=== PATIENT | male | born 1965 | race Caucasian/White ===

== ENCOUNTER 2020-03-03 13:59 | Emergency (ER) | payer OTHER ==
[~2020-03-03] VITALS: Ht 180.3 cm; Wt 83.5 kg
[2020-03-03 14:05] VITALS: BP 90/64
[2020-03-03] MEDS ORDERED: LIDOCAINE 1% INJ 50 ML MDV IJ ONE (14:25)
[2020-03-03] MEDS ORDERED: TDAP [DIPH/PERTUSSIS/TET] 0.5 ML VIAL IM ONE ×2 (14:28→14:30)
[2020-03-03] MEDS ORDERED: HYDROCODONE/APAP 5/325MG TABLET ONE (14:29)
[2020-03-03] MEDS ORDERED: LIDOCAINE HCL/PF 1% 30 ML VIAL TP ONE (14:30)
[2020-03-03] MEDS ORDERED: BACI/NEOM/POLY B OINT PKT 1 UDPKT PACKET TP ONE (14:30)
[2020-03-03] MEDS ORDERED: HYDROCODONE/APAP 5/325MG TABLET PO ONE (14:30)
[2020-03-03] MEDS ORDERED: BACI/NEOM/POLY B OINT PKT 1 UDPKT PACKET ONE (14:30)
--- NOTE | 2020-03-03 15:31 | NUR ---
Wound care Dc home instruction patient agrees to see his PMD or Clinic for wound check in 2 days agreed and suture removal in 7days
--- NOTE | 2020-03-03 15:31 | NUR ---
Patient discharged to home in stable condition. Written and verbal after care instructions given. Patient verbalizes understanding of instruction.
== END 2020-03-03 15:52 | disposition home or self-care (01) ==
LOC: ER 14:03
DX: S61.412A Laceration without foreign body of left hand, initial encounter (principal); I10 Essential (primary) hypertension; E78.00 Pure hypercholesterolemia, unspecified; W18.39XA Other fall on same level, initial encounter; Y93.89 Activity, other specified; Y92.89 Other specified places as the place of occurrence of the external cause; Y99.8 Other external cause status
CPT/HCPCS: 12002; 73120; 90471; 90715; 99283; A6403 ×2; J3490 ×2

== ENCOUNTER 2020-03-05 16:22 | Emergency (ER) | payer OTHER ==
[~2020-03-05] VITALS: Ht 180.3 cm; Wt 83.9 kg
[2020-03-05 16:42] VITALS: BP 119/77
--- NOTE | 2020-03-05 17:19 | NUR ---
Dressing applied to Left hand wound by JANETTE Calvillo. Patient discharged to home in stable condition. Written and verbal after care instructions given. Patient verbalizes understanding of instruction.
== END 2020-03-05 17:21 | disposition home or self-care (01) ==
LOC: ER 16:24
DX: S61.412D Laceration without foreign body of left hand, subsequent encounter (principal); I10 Essential (primary) hypertension; E78.00 Pure hypercholesterolemia, unspecified; X58.XXXD Exposure to other specified factors, subsequent encounter
CPT/HCPCS: 99282; A6403

== ENCOUNTER 2020-03-13 15:21 | Emergency (ER) | payer OTHER ==
[~2020-03-13] VITALS: Ht 180.3 cm; Wt 82.6 kg
[2020-03-13 15:27] VITALS: BP 145/97
--- NOTE | 2020-03-13 15:40 | NUR ---
Patient discharged to home in stable condition. Written and verbal after care instructions given. Patient verbalizes understanding of instruction. Pt ambulatory with a steady gait
== END 2020-03-13 15:42 | disposition home or self-care (01) ==
LOC: ER 15:21
DX: S61.412D Laceration without foreign body of left hand, subsequent encounter (principal); I10 Essential (primary) hypertension; E78.00 Pure hypercholesterolemia, unspecified; X58.XXXD Exposure to other specified factors, subsequent encounter

== ENCOUNTER 2020-06-15 14:07 | Emergency (ER) | payer OTHER ==
[~2020-06-15] VITALS: Ht 180.3 cm; Wt 81.6 kg
--- NOTE | 2020-06-15 14:09 | NUR ---
Onel valles in ED - 06/15/20 at 1416 by MARIA A [facility] transfer center called. unable to accept patient. full capacity
--- NOTE | 2020-06-15 14:16 | NUR ---
PT BIB SELF C/O L HAND PAIN 11/23. PT STATES THAT HE NEEDS AN XRAY OF THE L HAND B/C HE BUMPED HIS HAND AGAINST THE WALL. PT ABLE TO MOVE L HAND/FINGERS AND OPEN AND CLOSE FISTS. VS CHECKED. AWAITING MD HADLEY.
[2020-06-15] MEDS ORDERED: IBUPROFEN 600 MG TABLET PO ONE (16:30)
[2020-06-15] MEDS ORDERED: IBUPROFEN 600 MG TABLET ONE (16:43)
--- NOTE | 2020-06-15 16:45 | NUR ---
CAST APPLIED TO LUE. WAITING TO GET DRIED.
[2020-06-15 16:46] VITALS: BP 131/71
--- NOTE | 2020-06-15 16:52 | NUR ---
Patient discharged to home in stable condition. Written and verbal after care instructions given. Patient verbalizes understanding of instruction.
== END 2020-06-15 16:53 | disposition home or self-care (01) ==
LOC: ER 14:14
DX: S62.396A Other fracture of fifth metacarpal bone, right hand, initial encounter for closed fracture (principal); I10 Essential (primary) hypertension; W01.198A Fall on same level from slipping, tripping and stumbling with subsequent striking against other object, initial encounter; Y93.89 Activity, other specified; Y92.89 Other specified places as the place of occurrence of the external cause; Y99.8 Other external cause status
CPT/HCPCS: 73130-TC